=== PATIENT | female | born 1940 | race Caucasian/White ===

== ENCOUNTER 2019-05-19 14:15 | Inpatient (IN) ==
[2019-05-20] MEDS ORDERED: Melatonin 3 MG TABLET PO PRN (15:16)
[2019-05-20] MEDS ORDERED: Mag Hydrox/Al Hydrox/Simeth 30 ML UDC PO PRN (15:16)
[2019-05-20] MEDS ORDERED: Ondansetron ODT 4 MG TAB.RAPDIS SL PRN (15:16)
[2019-05-20] MEDS ORDERED: traMADol 50 MG TABLET PO PRN (16:40)
[2019-05-21] MEDS: Acetaminophen 325 MG TABLET PO PRN (03:36)
[2019-05-21] MEDS: *HR* Enoxaparin 40 MG/0.4 ML SYRINGE SQ SCH (05:00)
[2019-05-21 05:36] LABS: Basophils % 0.4 %; Eosinophils # 0.2 K/mcL (0.0-0.6); Eosinophils % 2.9 %; Hemoglobin 11.2 g/dL (11.5-15.4); Immature Granulocytes % 0.1 % (0-4); Lymphocytes % 14.4 %; Mean Corpuscular HGB Conc 32.9 g/dL (31.6-35.5); Mean Corpuscular Hemoglobin 29.6 pg (28.0-33.3); Mean Corpuscular Volume 89.7 fL (83.0-100.0); Mean Platelet Volume 10.1 fL (9.4-12.4); Monocytes # 0.6 K/mcL (0.0-1.3); Monocytes % 7.8 %; Neutrophils # 5.4 K/mcL (1.6-8.9); Platelet Count 196 K/mcL (140-400); Red Blood Count 3.79 M/mcL (3.82-4.97); Red Cell Distribution Width 13.3 % (11.5-14.5); Segmented Neutrophils % 74.4 %; White Blood Count 7.2 K/mcL (4.3-11.1)
[2019-05-21 05:51] LABS: Alanine Aminotransferase 7 Units/L (7-52); Albumin 2.9 g/dL (3.5-5.7); Albumin/Globulin Ratio 1.5 (1.1-2.2); Alkaline Phosphatase 75 Units/L (34-104); Aspartate Amino Transferase 13 Units/L (13-39); BUN/Creatinine Ratio 17 (6-26); Bilirubin,Total 0.5 mg/dL (0.3-1.0); Blood Urea Nitrogen 7 mg/dL (8-23); Calcium 8.6 mg/dL (8.6-10.3); Carbon Dioxide 30 mEq/L (23-29); Chloride 101 mEq/L (98-107); Glucose 103 mg/dL (70-105); Magnesium 1.8 mg/dL (1.6-2.6); Osmolality,Calculated 280 (280-300); Potassium 3.7 mEq/L (3.5-5.1); Sodium 136 mEq/L (136-145); Total Protein 4.9 g/dL (6.4-8.9); eGFR For African Americans > 60 (> 60); eGFR For Non-African Americans > 60 (> 60)
[2019-05-21] MEDS: amLODIPine 5 MG TABLET PO SCH (09:14)
--- NOTE | 2019-05-21 10:54 | Internal Med History&Physical ---
Date of Encounter: 05/21/19 Time of Encounter: 10:50 Assessment and Plan (1) Fracture, intertrochanteric, right femur Current visit: No Status: Acute Patient was admitted to facility for further rehabilitation due to deconditioning and unsteady gait. Therapy evaluation with recommendations pending. Right hip surgical site appears healthy with dressing intact. Patient states her pain has been well managed. We will continue with current medications to include prophylactic anticoagulation Qualifiers: Encounter type: initial encounter Fracture type: closed Fracture alignment: nondisplaced Qualified Code(s): S72.144A - Nondisplaced inter trochanteric fracture of right femur, initial encounter for closed fracture (2) HTN (hypertension) Current visit: No Status: Chronic No acute issues. Patient's blood pressure has been stable since surgery or medical records. We will continue with current medications Qualifiers: Hypertension type: essential hypertension Qualified Code(s): I10 - Essential (primary) hypertension Internal Medicine - H&P: HPI Chief complaint: right femur fracture Admitted From: Hospital to Hospital Transfer Plans for Post Hospital Care: Home History of present illness: Ms. Connelly is a 79 year old female with history of OA and hypertension, who was admitted at [facility] due to mechanical fall resulting in right intertrochanteric femur fracture. She underwent a right hip intramedullary nail fixation on 05/18. Post-operatively, she remained stable with an uneventful recovery. Patient was transferred to this facility for further rehabilitation due to deconditioning and unsteady gait. Patient states that she continues to have moderate pain to her right hip, but that her pain has been tolerable with current medications. States that she continues to have an unsteady gait, but is able to bear weight to her right leg. Denies any other discomforts or shortness of breath. Patient does state she has not had a BM in several days but states that this is not unusual when she has at home, as she can sometimes go several days without a bowel movement. Denies any abdominal cramping or discomforts. Past Med Surg Social Fam HX - Past Medical History Medical history: arthritis, hypertension Psychiatric history: no psych history - Past Surgical History Surgical History: herniorrhaphy Additional surgical history: HERNIA REPAIR X 2, right hip fracture and pinning 2019. - Social History Smoking Status: Former smoker Smokeless Tobacco Status: No Alcohol use: none Drug use: none - Family History Mother Family Member Ethnicity: Non- Living Status: Hx Family Cardiac Disorders: Yes ([place], Open heart surgery) Father Family Member Ethnicity: Non- Living Status: Hx Family Respiratory Disorders: Yes Brother Family Member Ethnicity: Non- Living Status: Still Living Hx Family Cardiac Disorders: Yes (CAD) Hx Family Cancer: Yes (Lung) Sister Family Member Ethnicity: Non- Living Status: Still Living Hx Family Cardiac Disorders: Yes (HTN) Internal Medicine - H&P: Meds Amlodipine Besylate 5 mg PO DAILY 05/17/19 [History] Atenolol 100 mg PO DAILY 05/17/19 [History] HYDROcodone/Acet 5/325 mg [[place] 5-325 mg] 1 tab PO Q6H PRN 5 Days #20 tab 05/20/19 [Rx] Allergy/AdvReac Type Severity Reaction Status Date / Time codeine Allergy Difficulty Verified 05/16/19 21:35 Breathing All Systems PM: A 10-system review of systems was performed and is negative for pertinent findings except as documented above in the HPI. - Constitutional Constitutional: as per HPI, no chills, no fever(s), no night sweats - EENT Eyes: as per HPI, no change in vision, no discharge, no pain, no photophobia Ears: no ear discharge, no ear pain, no tinnitus Nose, mouth and throat: as per HPI, no dysphagia, no nasal discharge, no neck pain, no sore throat - Cardiovascular Cardiovascular ROS IM: as per HPI, no chest pain, no diaphoresis, no dyspnea, no lightheadedness, no palpitations, no syncope - Respiratory Respiratory: as per HPI, no cough, no dyspnea, no wheezing, no excessive phlegm production - Gastrointestinal Gastrointestinal: as per HPI, no abdominal pain, no diarrhea, no hematemesis, no hematochezia, no melena, no nausea, no vomiting - Genitourinary Genitourinary: as per HPI, no change in urinary stream, no dysuria, no flank pain, no hematuria - Musculoskeletal Musculoskeletal ROS IM: as per HPI, no numbness, no tingling - Integumentary Integumentary IM: as per HPI, no rash, no unusual bruising - Neurological Neurological ROS: as per HPI, no confusion, no convulsions, no focal weakness, no numbness, no tingling, no tremor(s) - Hematologic/Lymphatic Hematologic/Lymphatic: no easy bruising - Constitutional Vitals: Temp Pulse Resp BP Pulse Ox 97.4 F L 68 17 129/77 95 05/21/19 07:02 05/21/19 07:02 05/21/19 07:02 05/21/19 07:02 05/21/19 07:02 General appearance: Present: A&O X 3, pleasant - Head Head exam: Present: atraumatic, normocephalic - Eye Eye exam: Present: PERRL, conjuntiva pink, sclera anicteric Pupils: Present: PERRL - Neck Neck exam general surgery: Present: supple, trachea midline. Absent: lymphadenopathy - Respiratory Respiratory exam: Present: decreased breath sounds, CTAB. Absent: accessory muscle use, rales, rhonchi, wheezes - Cardiovascular Cardiovascular exam: Present: RRR, +S1, +S2. Absent: diastolic murmur, gallop, rubs, systolic murmur - GI/Abdominal GI/Abdominal exam: Present: normal bowel sounds, soft, no peritoneal signs. Absent: distended, tenderness - Extremities Exam Extremities exam: Present: warm, radial pulses palpable and symmetrical. Absent: calf tenderness, cyanotic, pedal edema Additional comments: As with surgical dressing to right hip that appears dry and intact. No erythema or ecchymosis noted to size. Minimal edema to right hip - Neurological Exam Neurological exam: Present: CN II-XII intact, oriented X3, no focal deficits. Absent: pronater drift, facial droop, speech deficit - Skin Skin exam: Present: dry, intact Internal Med - H&P Results - Labs CBC & Chem 7: 05/21/19 05:20 05/21/19 05:20 Labs: Short CBC 05/21/19 Range/Units 05:20 WBC 7.2 (4.3-11.1) K/mcL Hgb 11.2 L (11.5-15.4) g/dL Hct 34.0 L (35.3-44.9) % Plt Count 196 (140-400) K/mcL Neutrophils # 5.4 (1.6-8.9) K/mcL BMP 05/21/19 05:20 Sodium 136 Potassium 3.7 Chloride 101 Carbon Dioxide 30 H BUN 7 L Creatinine 0.42 L Glucose 103 Calcium 8.6 Liver Function 05/21/19 Range/Units 05:20 Total Bilirubin 0.5 (0.3-1.0) mg/dL AST 13 (13-39) Units/L ALT 7 (7-52) Units/L Alkaline Phosphatase 75 (34-104) Units/L Albumin 2.9 L (3.5-5.7) g/dL
[2019-05-21] MEDS: traMADol 50 MG TABLET PO PRN (14:26)
[2019-05-22] MEDS: *HR* Enoxaparin 40 MG/0.4 ML SYRINGE SQ SCH (05:46)
[2019-05-22] MEDS: amLODIPine 5 MG TABLET PO SCH (08:23)
[2019-05-22] MEDS ORDERED: Isovue-370 500 ML BOTTLE IVP ONE (10:22)
--- NOTE | 2019-05-22 11:06 | Internal Med Progress Note ---
Date of Encounter: 05/22/19 Time of Encounter: 11:04 - Assessment and plan (1) Fracture, intertrochanteric, right femur Current Visit: Yes Status: Acute Assessment and plan: No acute issues. Right hip surgical incision appears healthy with dressing intact. No ecchymosis noted. Minimal edema noted. Patient is participating in therapy and progressing well. Qualifiers: Encounter type: initial encounter Fracture type: closed Fracture alignment: nondisplaced Qualified Code(s): S72.144A - Nondisplaced intertrochanteric fracture of right femur, initial encounter for closed fracture (2) HTN (hypertension) Current Visit: No Status: Chronic Assessment and plan: Vital signs remained stable. Patient will continue on current medications. Qualifiers: Hypertension type: essential hypertension Qualified Code(s): I10 - Essential (primary) hypertension (3) Dyspnea Current Visit: Yes Status: Acute Assessment and plan: Patient has had complaints of slight shortness of breath during exertion. Noted diminished breath sounds to basilar shaw with left greater than right. 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 We will continue to monitor patient. No hypoxia has been noted. Qualifiers: Dyspnea type: unspecified Qualified Code(s): R06.00 - Dyspnea, unspecified - Time Spent With Patient less than 15 minutes - Subjective Interval history: Patient appears relaxed and currently denies any discomforts. Patient states that the pain to her right hip increases during mobilization while in therapy but that the pain is tolerable with current medications. Patient has had complaints of slight dyspnea during exertion. Chest x-ray was obtained which shows a very elevated left hemidiaphragm but after review of patient's radiology records this is been an issue over the past 15 years. She denies any chest dis comforts or palpitations. She denies any productive cough. No history of hypoxia per medical records - Constitutional Vitals: Temp Pulse Resp BP Pulse Ox 98.2 F 70 16 144/80 95 05/22/19 07:23 05/22/19 07:23 05/22/19 07:23 05/22/19 07:23 05/22/19 07:23 General appearance: Present: A&O X 3, pleasant - Head Head exam: Present: atraumatic, normocephalic - Eye Eye exam: Present: PERRL, conjuntiva pink, sclera anicteric Pupils: Present: PERRL - Neck Neck exam general surgery: Present: supple, trachea midline. Absent: lymphadenopathy - Respiratory Respiratory exam: Present: decreased breath sounds, CTAB. Absent: accessory muscle use, rales, rhonchi, wheezes Additional comments: Lungs are clear throughout upper shaw with diminished(with left greater than right. No productive cough. Respiratory effort appears relaxed while at rest. - Cardiovascular Cardiovascular exam: Present: RRR, +S1, +S2. Absent: diastolic murmur, gallop, rubs, systolic murmur - GI/Abdominal GI/Abdominal exam: Present: normal bowel sounds, soft, no peritoneal signs. Absent: distended, tenderness - Extremities Exam Extremities exam: Present: warm, radial pulses palpable and symmetrical. Absent : calf tenderness, cyanotic, pedal edema Additional comments: Right hip surgical incision appears healthy with no ecchymosis noted. Surgical dressing remains intact. Minimal edema noted to right hip - Neurological Exam Neurological exam: Present: CN II-XII intact, oriented X3, no focal deficits. Absent: pronater drift, facial droop, speech deficit - Skin Skin exam: Present: dry, intact Internal Medicine: Result - Labs CBC & Chem 7: 05/21/19 05:20 05/21/19 05:20 - Impressions Impressions Chest X-Ray 05/22/19 08:45 IMPRESSION: 1. No significant change. 2. Marked elevation of the left hemidiaphragm likely left basilar atelectasis. D/ / Vipin Magallanes MD / Vipin Magallanes MD Interpreting Provider: Vipin Magallanes MD Consult Discharge Plan - Plan Referrals: Félix Isbell MD [Primary Care Provider] -
[2019-05-23] MEDS: *HR* Enoxaparin 40 MG/0.4 ML SYRINGE SQ SCH (05:06)
[2019-05-23] MEDS: Acetaminophen 325 MG TABLET PO PRN ×2 (08:10→13:02)
[2019-05-23] MEDS: amLODIPine 5 MG TABLET PO SCH (08:10)
--- NOTE | 2019-05-23 11:12 | Internal Med Progress Note ---
Date of Encounter: 05/23/19 Time of Encounter: 11:10 - Assessment and plan (1) Fracture, intertrochanteric, right femur Current Visit: Yes Status: Acute Assessment and plan: Continue PT and OT. Will follow progress. Follow up with ortho as scheduled. Pain controlled with Tylenol. Qualifiers: Encounter type: sequela Fracture type: closed Fracture alignment: nondisplaced Qualified Code(s): S72.144S - Nondisplaced intertrochanteric fracture of right femur, sequela (2) HTN (hypertension) Current Visit: Yes Status: Chronic Assessment and plan: Controlled with current medication. Monitor blood pressure. Qualifiers: Hypertension type: essential hypertension Qualified Code(s): I10 - Essential (primary) hypertension - Time Spent With Patient less than 15 minutes - Subjective Interval history: Participating well with therapy. States she is feeling better today. Continues to be on oxygen at 2 L per nasal cannula. Maintaining sets around 94%. Will try to wean. Denies fever, chills, nausea vomiting or diarrhea. Denies shortness of breath or chest pain. Pain to right hip is controlled with Tylenol. States she had a bowel movement last night. Maintaining appetite and hydration. - Constitutional Vitals: Temp Pulse Resp BP Pulse Ox 98.7 F 61 18 127/84 96 05/23/19 07:12 05/23/19 07:12 05/23/19 07:12 05/23/19 07:12 05/23/19 07:12 General appearance: Present: cooperative, A&O X 3, pleasant, no acute distress - Head Head exam: Present: atraumatic, normocephalic - Eye Eye exam: Present: PERRL, conjuntiva pink, sclera anicteric Pupils: Present: PERRL - Neck Neck exam general surgery: Present: supple, trachea midline. Absent: lymphadenopathy - Respiratory Respiratory exam: Present: CTAB. Absent: accessory muscle use, rales, rhonchi, wheezes - Cardiovascular Cardiovascular exam: Present: RRR, +S1, +S2. Absent: diastolic murmur, gallop, rubs, systolic murmur - GI/Abdominal GI/Abdominal exam: Present: normal bowel sounds, soft, no peritoneal signs. Absent: distended, tenderness - Extremities Exam Extremities exam: Present: warm, radial pulses palpable and symmetrical. Absent: calf tenderness, cyanotic, pedal edema - Incison Comments: Right hip incision dressing dry and intact. No drainage. No sign of infection. - Neurological Exam Neurological exam: Present: CN II-XII intact, oriented X3, no focal deficits. Absent: pronater drift, facial droop, speech deficit - Skin Skin exam: Present: dry, intact Internal Medicine: Result - Labs CBC & Chem 7: 05/21/19 05:20 05/21/19 05:20 Consult Discharge Plan - Plan Referrals: Félix Isbell MD [Primary Care Provider] -
[2019-05-24] MEDS: Acetaminophen 325 MG TABLET PO PRN ×4 (00:58→20:44)
[2019-05-24] MEDS: *HR* Enoxaparin 40 MG/0.4 ML SYRINGE SQ SCH (04:32)
[2019-05-24] MEDS: amLODIPine 5 MG TABLET PO SCH (08:39)
--- NOTE | 2019-05-24 09:40 | Internal Med Progress Note ---
Date of Encounter: 05/24/19 Time of Encounter: 09:39 - Assessment and plan (1) Dyspnea Current Visit: Yes Status: Acute Assessment and plan: This is at baseline, clinically. Oxygen continued to wean. Qualifiers: Dyspnea type: unspecified Qualified Code(s): R06.00 - Dyspnea, unspecified (2) Fracture, intertrochanteric, right femur Current Visit: Yes Status: Acute Assessment and plan: Continues to improve with therapies. Qualifiers: Encounter type: sequela Fracture type: closed Fracture alignment: nondisplaced Qualified Code(s): S72.144S - Nondisplaced intertrochanteric fracture of right femur, sequela (3) Hemidiaphragmatic eventration Current Visit: No Status: Acute Assessment and plan: Exam sounds better than before, no rales or today. (4) HTN (hypertension) Current Visit: Yes Status: Chronic Assessment and plan: Adequate control. Qualifiers: Hypertension type: essential hypertension Qualified Code(s): I10 - Essential (primary) hypertension - Subjective Interval history: Patient is without problems and feels tired after therapy, otherwise without complaint. She is pleased that her bowels finally moved. Patient has no complaint of chest discomfort, dyspnea, orthopnea, palpitations, nausea or vomiting, constipation or diarrhea, other changes in bowel habits, difficulty with urination, rash or itching, or other new complaints, except as mentioned above. Review of systems is otherwise negative. I discussed management of patient's care with nursing staff. - Constitutional Vitals: Temp Pulse Resp BP Pulse Ox 97.9 F 69 15 132/75 93 05/24/19 07:02 05/24/19 07:02 05/24/19 07:02 05/24/19 07:02 05/24/19 07:02 Exam: Examination: (Except as mentioned above): General: In no apparent distress. Alert and oriented 3. Nondiaphoretic. Head: Atraumatic and normocephalic. Respiratory: No use of accessory muscles. Lungs are clear throughout. Normal airflow. Cardiovascular: Regular rate and rhythm without murmur appreciated. Abdomen: Bowel sounds are normal. No hepatosplenomegaly mass or tenderness appreciated. Obese and therefore difficult to palpate deeply. Patient is examined upright in chair and this also limits exam. Extremities: No cyanosis clubbing or edema. Skin: Warm and non-diaphoretic with no new lesions noted. Internal Medicine: Result - Labs CBC & Chem 7: 05/21/19 05:20 05/21/19 05:20 Consult Discharge Plan - Plan Referrals: Félix Isbell MD [Primary Care Provider] -
[2019-05-25] MEDS: Acetaminophen 325 MG TABLET PO PRN ×5 (01:21→22:16)
[2019-05-25] MEDS: *HR* Enoxaparin 40 MG/0.4 ML SYRINGE SQ SCH (06:02)
[2019-05-25] MEDS: amLODIPine 5 MG TABLET PO SCH (08:56)
--- NOTE | 2019-05-25 13:23 | Internal Med Progress Note ---
Date of Encounter: 05/25/19 Time of Encounter: 13:21 - Assessment and plan (1) Dyspnea Current Visit: Yes Status: Acute Assessment and plan: She states this is improving. Clinically, oxygen has been weaned. Qualifiers: Dyspnea type: unspecified Qualified Code(s): R06.00 - Dyspnea, unspecified (2) Fracture, intertrochanteric, right femur Current Visit: Yes Status: Acute Assessment and plan: Continues to progress, well. Qualifiers: Encounter type: sequela Fracture type: closed Fracture alignment: nondisplaced Qualified Code(s): S72.144S - Nondisplaced intertrochanteric fracture of right femur, sequela (3) Hemidiaphragmatic eventration Current Visit: No Status: Inactive Assessment and plan: Apparently stable. (4) HTN (hypertension) Current Visit: Yes Status: Chronic Assessment and plan: Clinically controlled. Qualifiers: Hypertension type: essential hypertension Qualified Code(s): I10 - Essential (primary) hypertension - Subjective Interval history: Patient denies complaints. She states that she thinks a week or more of therapy because she wants to be stable and to be completely ready to go home. She started moving her bowels and is pleased with this. No other complaints. Patient has no complaint of chest discomfort, dyspnea, orthopnea, palpitations, nausea or vomiting, constipation or diarrhea, other changes in bowel habits, difficulty with urination, rash or itching, or other new complaints, except as mentioned above. Review of systems is otherwise negative. I discussed management of patient's care with nursing staff. - Constitutional Vitals: Temp Pulse Resp BP Pulse Ox 98.1 F 69 14 149/83 95 05/25/19 07:34 05/25/19 07:34 05/25/19 07:34 05/25/19 07:34 05/25/19 07:34 Exam: Examination: (Except as mentioned above): General: In no apparent distress. Alert and oriented 3. Nondiaphoretic. Head: Atraumatic and normocephalic. Respiratory: No use of accessory muscles. Lungs are clear throughout but she has diminished breath sounds at the left base, without rales. Normal airflow. Cardiovascular: Regular rate and rhythm without murmur appreciated. (I hear no murmur today.) Abdomen: Bowel sounds are normal. No hepatosplenomegaly mass or tenderness appreciated. Obese and therefore difficult to palpate deeply. Patient is examined upright in chair and this also limits exam. Extremities: No cyanosis clubbing or edema. Skin: Warm and non-diaphoretic with no new lesions noted. Internal Medicine: Result - Labs CBC & Chem 7: 05/21/19 05:20 05/21/19 05:20 Consult Discharge Plan - Plan Referrals: Félix Isbell MD [Primary Care Provider] -
[2019-05-26] MEDS: Acetaminophen 325 MG TABLET PO PRN ×4 (02:35→21:34)
[2019-05-26] MEDS: *HR* Enoxaparin 40 MG/0.4 ML SYRINGE SQ SCH (06:39)
[2019-05-26] MEDS: amLODIPine 5 MG TABLET PO SCH (08:33)
--- NOTE | 2019-05-26 09:44 | Internal Med Progress Note ---
Date of Encounter: 05/26/19 Time of Encounter: 09:42 - Assessment and plan (1) Fracture, intertrochanteric, right femur Current Visit: Yes Status: Acute Assessment and plan: No acute issues. Right hip surgical incision appears healthy with dressing intact. No ecchymosis noted. Minimal edema noted. Patient is participating in therapy and progressing well. Qualifiers: Encounter type: sequela Fracture type: closed Fracture alignment: nondisp laced Qualified Code(s): S72.144S - Nondisplaced intertrochanteric fracture of right femur, sequela (2) HTN (hypertension) Current Visit: Yes Status: Chronic Assessment and plan: Vital signs remained stable. Patient will continue on current medications. Qualifiers: Hypertension type: essential hypertension Qualified Code(s): I10 - Essential (primary) hypertension (3) Dyspnea Current Visit: Yes Status: Acute Assessment and plan: Patient has had complaints of slight shortness of breath during exertion. Noted diminished breath sounds to basilar shaw with left greater than right. Patient with a chronic left hemidiaphragm elevation, likely with the reduction of lung field, she becomes dyspneic with exertion. No signs of infectious process noted Qualifiers: Dyspnea type: unspecified Qualified Code(s): R06.00 - Dyspnea, unspecified - Time Spent With Patient less than 15 minutes - Subjective Interval history: Patient appears relaxed and currently denies any discomforts. Patient states that the pain to her right hip increases during mobilization while in therapy but that the pain is tolerable with current medications. Patient has had complaints of slight dyspnea during exertion, but patient with a history of a chronic, very elevated left hemidiaphragm. She states that her c/o dyspnea has been a chronic issue [employer] . She denies any chest discomforts or palpitations. She denies any productive cough. No history of hypoxia per medical records - Constitutional Vitals: Temp Pulse Resp BP Pulse Ox 98.3 F 66 16 143/75 98 05/26/19 07:00 05/26/19 07:00 05/26/19 07:00 05/26/19 07:00 05/26/19 07:00 General appearance: Present: cooperative, A&O X 3, pleasant, no acute distress - Head Head exam: Present: atraumatic, normocephalic - Eye Eye exam: Present: PERRL, conjuntiva pink, sclera anicteric Pupils: Present: PERRL - Neck Neck exam general surgery: Present: supple, trachea midline. Absent: lymphadenopathy - Respiratory Respiratory exam: Present: decreased breath sounds, CTAB. Absent: accessory mus cedric use, rales, rhonchi, wheezes Additional comments: Also clear to auscultation to upper shaw, but noted diminished basilar breath sounds with left greater than right. No productive cough. Respiratory effort appears relaxed. - Cardiovascular Cardiovascular exam: Present: RRR, +S1, +S2. Absent: diastolic murmur, gallop, rubs, systolic murmur - GI/Abdominal GI/Abdominal exam: Present: normal bowel sounds, soft, no peritoneal signs. Absent: distended, tenderness - Extremities Exam Extremities exam: Present: warm, radial pulses palpable and symmetrical. Absent: calf tenderness, cyanotic, pedal edema Additional comments: Right hip surgical incision appears healthy with dressing dry and intact. Minimal edema noted. No ecchymosis. - Neurological Exam Neurological exam: Present: CN II-XII intact, oriented X3, no focal deficits. Absent: pronater drift, facial droop, speech deficit - Skin Skin exam: Present: dry, intact Internal Medicine: Result - Labs CBC & Chem 7: 05/21/19 05:20 05/21/19 05:20 Consult Discharge Plan - Plan Referrals: Félix Isbell MD [Primary Care Provider] -
[2019-05-27] MEDS: *HR* Enoxaparin 40 MG/0.4 ML SYRINGE SQ SCH (04:22)
[2019-05-27] MEDS: traMADol 50 MG TABLET PO PRN (04:22)
[2019-05-27] MEDS: amLODIPine 5 MG TABLET PO SCH (09:43)
[2019-05-27] MEDS: Acetaminophen 325 MG TABLET PO PRN ×3 (09:43→23:34)
--- NOTE | 2019-05-27 10:33 | Internal Med Progress Note ---
Date of Encounter: 05/27/19 Time of Encounter: 10:31 - Assessment and plan (1) Fracture, intertrochanteric, right femur Current Visit: Yes Status: Acute Assessment and plan: Continue PT and OT. Will follow progress. Follow up with ortho as scheduled. Pain controlled with Tylenol. Qualifiers: Encounter type: sequela Fracture type: closed Fracture alignment: nondisplaced Qualified Code(s): S72.144S - Nondisplaced intertrochanteric fracture of right femur, sequela (2) HTN (hypertension) Current Visit: Yes Status: Chronic Assessment and plan: Controlled with current medication. Monitor blood pressure. Qualifiers: Hypertension type: essential hypertension Qualified Code(s): I10 - Essential (primary) hypertension - Time Spent With Patient less than 15 minutes - Subjective Interval history: Participating well with therapy. Denies fever, chills, nausea vomiting or diarrhea. Denies shortness of breath or chest pain. Pain to right hip is controlled with Tylenol. States she had a bowels moving as normal. Maintaining appetite and hydration. - Constitutional Vitals: Temp Pulse Resp BP Pulse Ox 97.8 F 69 16 136/79 96 05/27/19 07:00 05/27/19 07:00 05/27/19 07:00 05/27/19 07:00 05/27/19 07:00 General appearance: Present: cooperative, A&O X 3, pleasant, no acute distress - Head Head exam: Present: atraumatic, normocephalic - Eye Eye exam: Present: PERRL, conjuntiva pink, sclera anicteric Pupils: Present: PERRL - Neck Neck exam general surgery: Present: supple, trachea midline. Absent: lymphadenopathy - Respiratory Respiratory exam: Present: CTAB. Absent: accessory muscle use, rales, rhonchi, wheezes - Cardiovascular Cardiovascular exam: Present: RRR, +S1, +S2. Absent: diastolic murmur, gallop, rubs, systolic murmur - GI/Abdominal GI/Abdominal exam: Present: normal bowel sounds, soft, no peritoneal signs. Absent: distended, tenderness - Extremities Exam Extremities exam: Present: warm, radial pulses palpable and symmetrical. Absent: calf tenderness, cyanotic, pedal edema Additional comments: Arthritic joints, right lower extremity non-pitting edema. Incision to right hip dressing dry and intact. No drainage. - Neurological Exam Neurological exam: Present: CN II-XII intact, oriented X3, no focal deficits. Absent: pronater drift, facial droop, speech deficit - Skin Skin exam: Present: dry, intact Internal Medicine: Result - Labs CBC & Chem 7: 05/21/19 05:20 05/21/19 05:20 Consult Discharge Plan - Plan Referrals: Félix Isbell MD [Primary Care Provider] -
[2019-05-28] MEDS: *HR* Enoxaparin 40 MG/0.4 ML SYRINGE SQ SCH (05:35)
[2019-05-28] MEDS: Acetaminophen 325 MG TABLET PO PRN ×4 (05:35→22:01)
--- NOTE | 2019-05-28 08:17 | Internal Med Progress Note ---
Date of Encounter: 05/28/19 Time of Encounter: 08:16 - Assessment and plan (1) Dyspnea Current Visit: Yes Status: Acute Assessment and plan: She seems to be improved and apparently this is return to baseline or nearly so. Qualifiers: Dyspnea type: unspecified Qualified Code(s): R06.00 - Dyspnea, unspecified (2) Fracture, intertrochanteric, right femur Current Visit: Yes Status: Acute Assessment and plan: Stable and improving although therapy has faced her baseline ambulation difficulties. 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 (4) HTN (hypertension) Current Visit: Yes Status: Chronic Assessment and plan: Controlled. Qualifiers: Hypertension type: essential hypertension Qualified Code(s): I10 - Essential (primary) hypertension - Subjective Interval history: Patient denies complaints. She is fatigued with therapy but feels like she is progressing in terms of strength. Also, her breathing is improving. She is m oving her bowels, this morning. She has no other problems. Family is discussing home care providing attention 23/04. Patient has no complaint of chest discomfort, dyspnea, orthopnea, palpitations, nausea or vomiting, constipation or diarrhea, other changes in bowel habits, difficulty with urination, rash or itching, or other new complaints, except as mentioned above. Review of systems is otherwise negative. I discussed management of patient's care with nursing staff. - Constitutional Vitals: Temp Pulse Resp BP Pulse Ox 98.1 F 61 14 132/76 96 05/28/19 07:15 05/28/19 07:15 05/28/19 07:15 05/28/19 07:15 05/28/19 07:15 Exam: General: In no apparent distress. Alert and oriented 3. Nondiaphoretic. Head: Atraumatic and normocephalic. Respiratory: No use of accessory muscles. Lungs are clear throughout except left diminished breath sounds, as before. Normal airflow. Cardiovascular: Regular rate and rhythm without murmur appreciated. Abdomen: Bowel sounds are normal. No hepatosplenomegaly mass or tenderness appreciated. Obese and therefore difficult to palpate deeply. Extremities: No cyanosis clubbing or edema. Patient is examined upright in chair and this also limits exam. Skin: Warm and non-diaphoretic with no new lesions noted. Internal Medicine: Result - Labs CBC & Chem 7: 05/21/19 05:20 05/21/19 05:20 Consult Discharge Plan - Plan Referrals: Félix Isbell MD [Primary Care Provider] -
[2019-05-28] MEDS: amLODIPine 5 MG TABLET PO SCH (08:49)
[2019-05-28 11:20] LABS: Basophils # 0.1 K/mcL (0.0-0.2); Basophils % 0.7 %; Eosinophils # 0.1 K/mcL (0.0-0.6); Eosinophils % 0.8 %; Hematocrit 39.1 % (35.3-44.9); Hemoglobin 12.8 g/dL (11.5-15.4); Immature Granulocytes % 0.4 % (0-4); Lymphocytes # 1.2 K/mcL (0.6-4.6); Lymphocytes % 12.1 %; Mean Corpuscular HGB Conc 32.7 g/dL (31.6-35.5); Mean Corpuscular Volume 91.8 fL (83.0-100.0); Mean Platelet Volume 10.1 fL (9.4-12.4); Monocytes # 0.6 K/mcL (0.0-1.3); Monocytes % 5.9 %; Neutrophils # 7.9 K/mcL (1.6-8.9); Platelet Count 379 K/mcL (140-400); Red Blood Count 4.26 M/mcL (3.82-4.97); Red Cell Distribution Width 14.6 % (11.5-14.5); Segmented Neutrophils % 80.1 %; White Blood Count 9.8 K/mcL (4.3-11.1)
[2019-05-28 11:31] LABS: BUN/Creatinine Ratio 24 (6-26); Blood Urea Nitrogen 15 mg/dL (8-23); Carbon Dioxide 31 mEq/L (23-29); Chloride 98 mEq/L (98-107); Glucose 114 mg/dL (70-105); Osmolality,Calculated 278 (280-300); Sodium 133 mEq/L (136-145); eGFR For African Americans > 60 (> 60); eGFR For Non-African Americans > 60 (> 60)
[2019-05-29] MEDS: Acetaminophen 325 MG TABLET PO PRN ×4 (01:55→20:36)
[2019-05-29] MEDS: *HR* Enoxaparin 40 MG/0.4 ML SYRINGE SQ SCH (05:38)
[2019-05-29] MEDS: amLODIPine 5 MG TABLET PO SCH (09:21)
--- NOTE | 2019-05-29 10:13 | Internal Med Progress Note ---
Date of Encounter: 05/29/19 Time of Encounter: 10:11 - Assessment and plan (1) Fracture, intertrochanteric, right femur Current Visit: Yes Status: Acute Assessment and plan: No acute issues. Right hip surgical incision appears healthy with dressing intact. No ecchymosis noted. Minimal edema noted. Patient is participating in therapy and progressing well. Qualifiers: Encounter type: sequela Fracture type: closed Fracture alignment: nondisp laced Qualified Code(s): S72.144S - Nondisplaced intertrochanteric fracture of right femur, sequela (2) HTN (hypertension) Current Visit: Yes Status: Chronic Assessment and plan: Vital signs remained stable. Patient will continue on current medications. Qualifiers: Hypertension type: essential hypertension Qualified Code(s): I10 - Essential (primary) hypertension - Time Spent With Patient less than 15 minutes - Subjective Interval history: Patient appears relaxed and currently denies any discomforts. Patient states that the pain to her right hip increases during mobilization while in therapy but that the pain is tolerable with current medications. She denies any chest discomforts or palpitations. - Constitutional Vitals: Temp Pulse Resp BP Pulse Ox 97.6 F 60 16 131/88 97 05/29/19 07:00 05/29/19 07:00 05/29/19 07:00 05/29/19 07:00 05/29/19 07:00 General appearance: Present: cooperative, A&O X 3, pleasant, no acute distress - Head Head exam: Present: atraumatic, normocephalic - Eye Eye exam: Present: PERRL, conjuntiva pink, sclera anicteric Pupils: Present: PERRL - Neck Neck exam general surgery: Present: supple, trachea midline. Absent: lymphadenopathy - Respiratory Respiratory exam: Present: decreased breath sounds, CTAB. Absent: accessory muscle use, rales, rhonchi, wheezes - Cardiovascular Cardiovascular exam: Present: RRR, +S1, +S2. Absent: diastolic murmur, gallop, rubs, systolic murmur - GI/Abdominal GI/Abdominal exam: Present: normal bowel sounds, soft, no peritoneal signs. Absent: distended, tenderness - Extremities Exam Extremities exam: Present: normal capillary refill, normal inspection, warm, radial pulses palpable and symmetrical. Absent: calf tenderness, cyanotic, pedal edema Additional comments: Patient was surgical dressing to right hip is dry and intact. No ecchymosis noted minimal edema noted - Neurological Exam Neurological exam: Present: CN II-XII intact, oriented X3, no focal deficits. Absent: pronater drift, facial droop, speech deficit - Skin Skin exam: Present: dry, intact Internal Medicine: Result - Labs CBC & Chem 7: 05/28/19 11:03 05/28/19 11:03 Labs: Short CBC 05/28/19 Range/Units 11:03 WBC 9.8 (4.3-11.1) K/mcL Hgb 12.8 (11.5-15.4) g/dL Hct 39.1 (35.3-44.9) % Plt Count 379 (140-400) K/mcL Neutrophils # 7.9 (1.6-8.9) K/mcL BMP 05/28/19 11:03 Sodium 133 L Potassium 4.0 Chloride 98 Carbon Dioxide 31 H BUN 15 Creatinine 0.63 Glucose 114 H Calcium 10.0 Consult Discharge Plan - Plan Referrals: Félix Isbell MD [Primary Care Provider] -
[2019-05-30] MEDS: Acetaminophen 325 MG TABLET PO PRN ×4 (03:07→21:55)
[2019-05-30] MEDS: *HR* Enoxaparin 40 MG/0.4 ML SYRINGE SQ SCH (05:20)
[2019-05-30] MEDS: amLODIPine 5 MG TABLET PO SCH (08:26)
--- NOTE | 2019-05-30 10:23 | Internal Med Progress Note ---
Date of Encounter: 05/30/19 Time of Encounter: 10:22 - Assessment and plan (1) Fracture, intertrochanteric, right femur Current Visit: Yes Status: Acute Assessment and plan: Continue PT and OT. Will follow progress. Follow up with ortho as scheduled. Pain controlled with Tylenol. Qualifiers: Encounter type: sequela Fracture type: closed Fracture alignment: nondisplaced Qualified Code(s): S72.144S - Nondisplaced intertrochanteric fracture of right femur, sequela (2) HTN (hypertension) Current Visit: Yes Status: Chronic Assessment and plan: Controlled with current medication. Monitor blood pressure. Qualifiers: Hypertension type: essential hypertension Qualified Code(s): I10 - Essential (primary) hypertension - Time Spent With Patient less than 15 minutes - Subjective Interval history: Participating well with therapy. Denies fever, chills, nausea vomiting or diarrhea. Denies shortness of breath or chest pain. Pain to right hip is controlled with Tylenol. States she had a bowels moving as normal. Maintaining appetite and hydration. - Constitutional Vitals: Temp Pulse Resp BP Pulse Ox 98.4 F 80 18 124/82 97 05/30/19 07:00 05/30/19 07:00 05/30/19 07:00 05/30/19 07:00 05/30/19 07:00 General appearance: Present: cooperative, A&O X 3, pleasant, no acute distress - Head Head exam: Present: atraumatic, normocephalic - Eye Eye exam: Present: PERRL, conjuntiva pink, sclera anicteric Pupils: Present: PERRL - Neck Neck exam general surgery: Present: supple, trachea midline. Absent: lymphadenopathy - Respiratory Respiratory exam: Present: CTAB. Absent: accessory muscle use, rales, rhonchi, wheezes - Cardiovascular Cardiovascular exam: Present: RRR, +S1, +S2. Absent: diastolic murmur, gallop, rubs, systolic murmur - GI/Abdominal GI/Abdominal exam: Present: normal bowel sounds, soft, no peritoneal signs. Absent: distended, tenderness - Extremities Exam Extremities exam: Present: warm, radial pulses palpable and symmetrical. Absent: calf tenderness, cyanotic, pedal edema Additional comments: slight edema to RLE. - Incison Comments: Right hip incision, dressing dry and intact. No drainage. - Neurological Exam Neurological exam: Present: CN II-XII intact, oriented X3, no focal deficits. Absent: pronater drift, facial droop, speech deficit - Skin Skin exam: Present: dry, intact Internal Medicine: Result - Labs CBC & Chem 7: 05/28/19 11:03 05/28/19 11:03 Consult Discharge Plan - Plan Referrals: Félix Isbell MD [Primary Care Provider] -
[2019-05-31] MEDS: Acetaminophen 325 MG TABLET PO PRN ×4 (02:43→21:13)
[2019-05-31] MEDS: *HR* Enoxaparin 40 MG/0.4 ML SYRINGE SQ SCH (06:12)
[2019-05-31] MEDS: amLODIPine 5 MG TABLET PO SCH (08:18)
--- NOTE | 2019-05-31 09:14 | Internal Med Progress Note ---
Date of Encounter: 05/31/19 Time of Encounter: 09:12 - Assessment and plan (1) Fracture, intertrochanteric, right femur Current Visit: Yes Status: Acute Assessment and plan: stable getting rehab and is doing better slowly improving Qualifiers: Encounter type: sequela Fracture type: closed Fracture alignment: nondisplaced Qualified Code(s): S72.144S - Nondisplaced intertrochanteric fracture of right femur, sequela (2) HTN (hypertension) Current Visit: Yes Status: Chronic Assessment and plan: stable on meds Continue to follow and adjsut meds as needed Qualifiers: Hypertension type: essential hypertension Qualified Code(s): I10 - Essential (primary) hypertension (3) Dyspnea Current Visit: Yes Status: Chronic Assessment and plan: using Oxygen the present time . She used to smoke but quit 50 years ago. overall doing better continue to follow Qualifiers: Dyspnea type: unspecified Qualified Code(s): R06.00 - Dyspnea, unspecified - Time Spent With Patient 25 - 35 minutes - Subjective Interval history: Cross coverage . No acute issues .Seems to be doing fine She is using Oxygen which she needs when she is performing exercise No cough no fever or chills overall she feels better . Pain is well controlled - Constitutional Vitals: Temp Pulse Resp BP Pulse Ox 98 F 101 18 126/72 97 05/31/19 07:00 05/31/19 07:00 05/31/19 07:00 05/31/19 07:00 05/31/19 07:00 General appearance: Present: cooperative, A&O X 3, pleasant, no acute distress - Head Head exam: Present: atraumatic - Eye Eye exam: Present: EOMI, PERRL. Absent: periorbital tenderness, scleral icterus , conjuntiva pink, sclera anicteric - Neck Neck exam general surgery: Present: full ROM, supple. Absent: tenderness, nuchal rigidity - Respiratory Respiratory exam: Present: CTAB. Absent: respiratory distress, rhonchi, s tridor, wheezes, tachypnea - Cardiovascular Cardiovascular exam: Present: RRR, +S1, +S2. Absent: gallop, systolic murmur, tachycardia - GI/Abdominal GI/Abdominal exam: Present: soft. Absent: distended, firm, guarding, rebound, rigid, tenderness, no peritoneal signs - Extremities Exam Extremities exam: Absent: calf tenderness, pedal edema, tenderness - Back Exam Back exam: Absent: paraspinal tenderness, tenderness Additional comments: mild khyphosis - Neurological Exam Neurological exam: Present: altered, CN II-XII intact, oriented X3, no focal deficits. Absent: facial droop, speech deficit Internal Medicine: Result - Labs CBC & Chem 7: 05/28/19 11:03 05/28/19 11:03 Consult Discharge Plan - Plan Referrals: Félix Isbell MD [Primary Care Provider] -
[2019-06-01] MEDS: Acetaminophen 325 MG TABLET PO PRN ×4 (01:36→23:28)
[2019-06-01] MEDS: *HR* Enoxaparin 40 MG/0.4 ML SYRINGE SQ SCH (05:50)
[2019-06-01] MEDS: amLODIPine 5 MG TABLET PO SCH (08:14)
--- NOTE | 2019-06-01 08:41 | Internal Med Progress Note ---
Date of Encounter: 06/01/19 Time of Encounter: 08:39 - Assessment and plan (1) Fracture, intertrochanteric, right femur Current Visit: Yes Status: Acute Assessment and plan: stable getting rehab and is doing better slowly improving Wound healing good no signs of inflammation Qualifiers: Encounter type: sequela Fracture type: closed Fracture alignment: nondisplaced Qualified Code(s): S72.144S - Nondisplaced intertrochanteric fracture of right femur, sequela (2) HTN (hypertension) Current Visit: Yes Status: Chronic Assessment and plan: stable on meds Continue to follow and adjust meds as needed Qualifiers: Hypertension type: essential hypertension Qualified Code(s): I10 - Essential (primary) hypertension (3) Dyspnea Current Visit: Yes Status: Chronic Assessment and plan: using Oxygen the present time . Continues to use Oxygen need to assess if she will require it at home Qualifiers: Dyspnea type: unspecified Qualified Code(s): R06.00 - Dyspnea, unspecified - Subjective Interval history: Cross coverage . No acute issues today had good night sleep .Pain is well controlled on Tylenol. Overall she feels that she is getting better - Constitutional Vitals: Temp Pulse Resp BP Pulse Ox 98.6 F 61 16 125/78 97 06/01/19 07:00 06/01/19 07:00 06/01/19 07:00 06/01/19 07:00 06/01/19 07:00 General appearance: Present: cooperative, A&O X 3, pleasant, no acute distress - Head Head exam: Present: atraumatic - Eye Eye exam: Present: PERRL. Absent: periorbital tenderness, scleral icterus, conjuntiva pink, sclera anicteric - Neck Neck exam general surgery: Present: full ROM, supple. Absent: tenderness, nuchal rigidity - Respiratory Respiratory exam: Present: CTAB. Absent: respiratory distress, rhonchi, st ridor, wheezes, tachypnea Additional comments: using oxygen pulse OX stable - Cardiovascular Cardiovascular exam: Present: RRR, +S1, +S2. Absent: gallop, systolic murmur, tachycardia - GI/Abdominal GI/Abdominal exam: Present: normal bowel sounds, soft. Absent: guarding, rebound, rigid - Extremities Exam Extremities exam: Absent: pedal edema, tenderness, warm - Incison Incision: Present: clean and dry, intact. Absent: red, swollen, purulent, indurated - Neurological Exam Neurological exam: Present: CN II-XII intact, oriented X3, strengths equal and symetr throughout. Absent: pronater drift, facial droop, speech deficit Internal Medicine: Result - Labs CBC & Chem 7: 05/28/19 11:03 05/28/19 11:03 Consult Discharge Plan - Plan Referrals: Félix Isbell MD [Primary Care Provider] -
[2019-06-02] MEDS: *HR* Enoxaparin 40 MG/0.4 ML SYRINGE SQ SCH (04:48)
[2019-06-02] MEDS: Acetaminophen 325 MG TABLET PO PRN ×3 (04:52→20:59)
--- NOTE | 2019-06-02 08:17 | Internal Med Progress Note ---
Date of Encounter: 06/02/19 Time of Encounter: 08:15 - Assessment and plan (1) Fracture, intertrochanteric, right femur Current Visit: Yes Status: Acute Assessment and plan: stable getting rehab . No new issues except for edema feet both side no swelling in calfs. Elevate feet while sitting . Qualifiers: Encounter type: sequela Fracture type: closed Fracture alignment: nondisplaced Qualified Code(s): S72.144S - Nondisplaced intertrochanteric fracture of right femur, sequela (2) HTN (hypertension) Current Visit: Yes Status: Chronic Assessment and plan: stable on meds No new issues .Continue to follow and adjust meds as needed Qualifiers: Hypertension type: essential hypertension Qualified Code(s): I10 - Essential (primary) hypertension (3) Dyspnea Current Visit: Yes Status: Chronic Assessment and plan: using Oxygen the present time which uses as needed. Need reassessment if she qualifies for oxygen Qualifiers: Dyspnea type: unspecified Qualified Code(s): R06.00 - Dyspnea, unspecified - Subjective Interval history: Cross coverage . No acute issues today and up in chair Pain is well controlled on Tylenol. Overall she feels that she is getting better - Constitutional Vitals: Temp Pulse Resp BP Pulse Ox 97.8 F 67 18 132/68 91 06/01/19 19:45 06/01/19 19:45 06/01/19 19:45 06/01/19 19:45 06/01/19 19:45 General appearance: Present: cooperative, A&O X 3, pleasant, no acute distress - Head Head exam: Present: atraumatic - Eye Eye exam: Present: EOMI, PERRL. Absent: conjuntiva pink, sclera anicteric - Neck Neck exam general surgery: Present: supple. Absent: tenderness, nuchal rigidity - Respiratory Respiratory exam: Present: CTAB. Absent: respiratory distress, rhonchi, stridor, wheezes - Cardiovascular Cardiovascular exam: Present: RRR, +S1, +S2. Absent: systolic murmur - GI/Abdominal GI/Abdominal exam: Present: normal bowel sounds, soft. Absent: rebound, rigid, tenderness, no peritoneal signs - Extremities Exam Extremities exam: Present: pedal edema Additional comments: edema feet noted today she has been sitting with her legs dangling . Pitting - Incison Incision: Present: clean and dry, intact. Absent: draining, red, swollen, inflamed, erythema - Neurological Exam Neurological exam: Present: alert, CN II-XII intact, oriented X3, strengths equal and symetr throughout. Absent: facial droop, speech deficit Internal Medicine: Result - Labs CBC & Chem 7: 05/28/19 11:03 05/28/19 11:03 Consult Discharge Plan - Plan Referrals: Félix Isbell MD [Primary Care Provider] -
[2019-06-02] MEDS: amLODIPine 5 MG TABLET PO SCH (08:23)
[2019-06-03] MEDS: Acetaminophen 325 MG TABLET PO PRN ×4 (01:33→22:27)
[2019-06-03] MEDS: *HR* Enoxaparin 40 MG/0.4 ML SYRINGE SQ SCH (05:35)
[2019-06-03] MEDS: amLODIPine 5 MG TABLET PO SCH (07:42)
[2019-06-03 08:36] LABS: BUN/Creatinine Ratio 25 (6-26); Blood Urea Nitrogen 14 mg/dL (8-23); Calcium 9.8 mg/dL (8.6-10.3); Carbon Dioxide 30 mEq/L (23-29); Chloride 102 mEq/L (98-107); Glucose 114 mg/dL (70-105); Osmolality,Calculated 285 (280-300); Sodium 137 mEq/L (136-145); eGFR For African Americans > 60 (> 60); eGFR For Non-African Americans > 60 (> 60)
--- NOTE | 2019-06-03 16:11 | Internal Med Progress Note ---
Date of Encounter: 06/04/19 Time of Encounter: 17:10 - Subjective Interval history: - Assessment and plan (1) Fracture, intertrochanteric, right femur Current Visit: Yes Status: Acute Assessment and plan: stable getting rehab . No new issues except for edema feet both side no swelling in calfs. Elevate feet while sitting . Qualifiers: Encounter type: sequela Fracture type: closed Fracture alignment: nondisplaced Qualified Code(s): S72.144S - Nondisplaced intertrochanteric fracture of right femur, sequela (2) HTN (hypertension) Current Visit: Yes Status: Chronic Assessment and plan: stable on meds No new issues .Continue to follow and adjust meds as needed Qualifiers: Hypertension type: essential hypertension Qualified Code(s): I10 - Essential (primary) hypertension (3) Dyspnea Current Visit: Yes Status: Chronic Assessment and plan: using Oxygen the present time which uses as needed. Need reassessment if she q ualifies for oxygen Qualifiers: Dyspnea type: unspecified Qualified Code(s): R06.00 - Dyspnea, unspecified - Subjective Interval history: PT doing well with therapy walking slow with walker states would like to take Calcium and VIT D as she had been told to do at home Pain is well controlled on Tylenol. Overall she feels that she is getting better EXAM General appearance: Present: cooperative, A&O X 3, pleasant, no acute distress - Head Head exam: Present: atraumatic - Eye Eye exam: Present: EOMI, PERRL. Absent: conjuntiva pink, sclera anicteric - Neck Neck exam general surgery: Present: supple. Absent: tenderness, nuchal rigidity - Respiratory Respiratory exam: Present: CTAB. Absent: respiratory distress, rhonchi, stridor, wheezes - Cardiovascular Cardiovascular exam: Present: RRR, +S1, +S2. Absent: systolic murmur - GI/Abdominal GI/Abdominal exam: Present: normal bowel sounds, soft. Absent: rebound, rigid, tenderness, no peritoneal signs - Extremities Exam Extremities exam: Present: pedal edema Additional comments: edema feet noted today she has been sitting with her legs dangling . Pitting - Incison Incision: Present: clean and dry, intact. - Constitutional Vitals: Temp Pulse Resp BP Pulse Ox 97.6 F 65 16 125/73 92 06/03/19 07:39 09/03/19 07:39 06/03/19 07:39 06/03/19 07:39 06/03/19 07:39 General appearance: Present: cooperative, A&O X 3, pleasant, no acute distress Internal Medicine: Result - Labs CBC & Chem 7: 05/28/19 11:03 06/03/19 07:48 Labs: BMP 06/03/19 07:48 Sodium 137 Potassium 4.0 Chloride 102 Carbon Dioxide 30 H BUN 14 Creatinine 0.56 L Glucose 114 H Calcium 9.8 Consult Discharge Plan - Plan Referrals: Félix Isbell MD [Primary Care Provider] -
[2019-06-03] MEDS: Cholecalciferol (D-3) 1,000 UNIT (25MCG) TABLET PO SCH (17:10)
[2019-06-04] MEDS: Acetaminophen 325 MG TABLET PO PRN ×4 (03:10→19:49)
[2019-06-04] MEDS: *HR* Enoxaparin 40 MG/0.4 ML SYRINGE SQ SCH (05:08)
[2019-06-04] MEDS: amLODIPine 5 MG TABLET PO SCH (07:32)
[2019-06-04] MEDS: Cholecalciferol (D-3) 1,000 UNIT (25MCG) TABLET PO SCH (07:32)
[2019-06-04] MEDS: Multivit/Ca/Min/Fe/FA 1 TAB TABLET PO SCH (07:33)
--- NOTE | 2019-06-04 10:45 | Internal Med Progress Note ---
Date of Encounter: 06/04/19 Time of Encounter: 10:43 - Assessment and plan (1) Fracture, intertrochanteric, right femur Current Visit: Yes Status: Acute Assessment and plan: No acute issues. Right hip surgical incision appears healthy with dressing intact. No ecchymosis noted. Minimal edema noted. Patient is participating in therapy and progressing well. Qualifiers: Encounter type: sequela Fracture type: closed Fracture alignment: nondisp laced Qualified Code(s): S72.144S - Nondisplaced intertrochanteric fracture of right femur, sequela (2) HTN (hypertension) Current Visit: Yes Status: Chronic Assessment and plan: Vital signs remained stable. Patient will continue on current medications. Qualifiers: Hypertension type: essential hypertension Qualified Code(s): I10 - Essential (primary) hypertension - Time Spent With Patient less than 15 minutes - Subjective Interval history: Patient appears relaxed and currently denies any discomforts. Patient states that the pain to her right hip increases during mobilization while in therapy but that the pain is tolerable with current medications. She denies any chest discomforts or palpitations. - Constitutional Vitals: Temp Pulse Resp BP Pulse Ox 98.0 F 65 16 139/72 93 06/04/19 07:14 06/04/19 07:14 06/04/19 07:14 06/04/19 07:14 06/04/19 07:14 General appearance: Present: cooperative, A&O X 3, pleasant, no acute distress - Head Head exam: Present: atraumatic, normocephalic - Eye Eye exam: Present: PERRL, conjuntiva pink, sclera anicteric Pupils: Present: PERRL - Neck Neck exam general surgery: Present: supple, trachea midline. Absent: lymphadenopathy - Respiratory Respiratory exam: Present: decreased breath sounds, CTAB. Absent: accessory muscle use, rales, rhonchi, wheezes - Cardiovascular Cardiovascular exam: Present: RRR, +S1, +S2. Absent: diastolic murmur, gallop, rubs, systolic murmur - GI/Abdominal GI/Abdominal exam: Present: normal bowel sounds, soft, no peritoneal signs. Absent: distended, tenderness - Extremities Exam Extremities exam: Present: normal capillary refill, normal inspection, warm, radial pulses palpable and symmetrical. Absent: calf tenderness, cyanotic, pedal edema Additional comments: Patient's right hip surgical incision appears to be healing well. Slight edema noted right hip. - Neurological Exam Neurological exam: Present: CN II-XII intact, oriented X3, no focal deficits. Absent: pronater drift, facial droop, speech deficit - Skin Skin exam: Present: dry, intact Internal Medicine: Result - Labs CBC & Chem 7: 05/28/19 11:03 06/03/19 07:48 Consult Discharge Plan - Plan Referrals: Félix Isbell MD [Primary Care Provider] -
[2019-06-05] MEDS: Acetaminophen 325 MG TABLET PO PRN ×2 (00:06→08:03)
[2019-06-05] MEDS: *HR* Enoxaparin 40 MG/0.4 ML SYRINGE SQ SCH (05:20)
[2019-06-05 07:52] VITALS: BP 137/77
[2019-06-05] MEDS: Multivit/Ca/Min/Fe/FA 1 TAB TABLET PO SCH (07:55)
[2019-06-05] MEDS: Cholecalciferol (D-3) 1,000 UNIT (25MCG) TABLET PO SCH (07:55)
[2019-06-05] MEDS: amLODIPine 5 MG TABLET PO SCH (07:55)
--- NOTE | 2019-06-05 09:54 | Discharge Summary ---
Date of Encounter: 06/05/19 Time of Encounter: 09:51 - Discharge Diagnosis (1) Fracture, intertrochanteric, right femur Priority: Primary Status: Acute Comments: No acute issues during her stay. Patient's surgical wound to right hip appears to be healing well. Patient has had follow-up with orthopedic surgeon with no new orders and bhavin removed. She has been participating in physical therapy and progressing well although patient has had issues with hypoxia, which is exacerbated by exertion. Patient to continue follow-up with her orthopedic surgeon and PCP after discharge for further management Qualifiers: Encounter type: sequela Fracture type: closed Fracture alignment: nondisplaced Qualified Code(s): S72.144S - Nondisplaced intertrochanteric fracture of right femur, sequela (2) HTN (hypertension) Priority: Secondary Status: Chronic Comments: Vital signs remained stable during her stay. Patient is to continue on current medications after discharge and follow-up with PCP for further management Qualifiers: Hypertension type: essential hypertension Qualified Code(s): I10 - Essential (primary) hypertension (3) Hypoxemia Priority: Secondary Status: Acute Comments: Patient shortness of breath with hypoxia during exertion while in therapy. Malachi lomeli's oxygen saturation has been documented as low as 85%. Patient was placed on an oximeter for overnight and showed continued hypoxia with saturations in the mid 80s while on room air. Patient's oxygenation increased with supplemental oxygen at 2 L and she was able to maintain saturations greater than 90%. Patient has a history significant for a left hemidiaphragm elevation, with imaging evidence found in medical records as far back as 2004. Patient shows significant lung reduction on her left lung shaw. Patient also has serial echocardiograms which shows mild left ventricular dysfunction. Patient will be discharged with a prescription for oxygen and is to follow-up with her PCP in one week for further evaluation and management. Hospital course: Ms. Connelly is a 79 year old female with history of OA and hypertension, who was admitted at [facility] due to mechanical fall resulting in right intertrochanteric femur fracture. She underwent a right hip intramedullary nail fixation on 05/18. Post-operatively, she remained stable with an uneventful recovery. Patient was transferred to this facility for further rehabilitation due to deconditioning and unsteady gait. Patient states that she continues to have moderate pain to her right hip, but that her pain has remained tolerable with current medications. Patient had had complaints of dyspnea on exertion while admitted to facility. 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 Patient was found to be hypoxic during ambulation was saturations on room air dropping to mid 80s. Patient was placed on oxygen at 2 L unable to maintain saturations greater than 90%. She also had an overnight oximetry trend obtained which shows significant drop in her oxygen while on room air to the mid 80s and again this resolved after placing on oxygen at 2 L, which maintaining greater than 90%. Patient's right hip surgical incision has remained healthy in appearance and she was able to attend a follow- up with orthopedic surgeon with no changes in orders received. Bhavin have been removed. Patient continues to progress with physical therapy and will continue her therapy to outpatient services after discharge. Patient will be discharged with prescription for oxygen at 2 L and is to follow-up with her PCP in one week after discharge for further evaluation and management. Discharge discussed with: patient Time spent discussing smoking cessation with patient: 3 to 10 minutes - Time Spent with Patient Total time spent providing and/or coordinating discharge services: Time spent: Less than 30 minutes - Discharge Medications Prescriptions: No Action Amlodipine Besylate 5 mg PO DAILY Atenolol 100 mg PO DAILY HYDROcodone/Acet 5/325 mg [[place] 5-325 mg] 1 tab PO Q6H PRN 5 Days #20 tab PRN Reason: Severe Pain Home Medications: Amlodipine Besylate 5 mg PO DAILY 05/17/19 [History] Atenolol 100 mg PO DAILY 05/17/19 [History] HYDROcodone/Acet 5/325 mg [[place] 5-325 mg] 1 tab PO Q6H PRN 5 Days #20 tab 05/20/19 [Rx] Allergies/Adverse Reactions: Allergy/AdvReac Type Severity Reaction Status Date / Time codeine Allergy Difficulty Verified 05/16/19 21:35 Breathing Date of admission: 05/20/19 14:10 Primary care physician: Félix Isbell MD Consults: 05/20/19 15:07 Consult to Occupational Therapy [CONS] Routine Comment: Evaluate, develop and implement POC Reason for Consult: s/p right hip fracture Does patient have active BEDREST order?: No Is patient medically & hemodynamically stable?: Yes Patient assessed for mobility or mobilized this visit?: No Consult to Physical Therapy [CONS] Routine Comment: Evaluate, develop and implement POC Reason for Consult: s/p right hip fracture Does patient have active BEDREST order?: No Is patient medically & hemodynamically stable?: Yes Patient assessed for mobility or mobilized this visit?: No Consult to Recreational Therapy [CONS] Routine Comment: Evaluate, develop and implement POC Consult to [facility] [CONS] Routine Reason for SW Consult: d/c planning 05/20/19 15:58 Consult to Nutrition [CONS] Routine Comment: Consulting Provider: NUTRITION Reason for Dietary Consult: MST Score Other Other:: Hypoalbuminemia Discharging clinician: John Lynn - Constitutional Vitals: Temp Pulse Resp BP Pulse Ox 97.5 F L 69 16 137/77 95 06/05/19 07:51 06/05/19 07:51 06/05/19 07:51 06/05/19 07:51 06/05/19 08:10 General appearance: Present: cooperative, A&O X 3, pleasant, no acute distress - Head Head exam: Present: atraumatic, normocephalic - Eye Eye exam: Present: PERRL, conjuntiva pink, sclera anicteric Pupils: Present: PERRL - Neck Neck exam general surgery: Present: supple, trachea midline. Absent: lymphadenopathy - Respiratory Respiratory exam: Present: decreased breath sounds, CTAB. Absent: accessory muscle use, rales, rhonchi, wheezes - Cardiovascular Cardiovascular exam: Present: RRR, +S1, +S2. Absent: diastolic murmur, gallop, rubs, systolic murmur - GI/Abdominal GI/Abdominal exam: Present: normal bowel sounds, soft, no peritoneal signs. Absent: distended, tenderness - Extremities Exam Extremities exam: Present: warm, radial pulses palpable and symmetrical. Absent: calf tenderness, cyanotic, pedal edema Additional comments: Right hip surgical incision appears to be healing well. No erythema or ecchymosis - Neurological Exam Neurological exam: Present: CN II-XII intact, oriented X3, no focal deficits. Absent: pronater drift, facial droop, speech deficit - Skin Skin exam: Present: dry, intact - Patient Status Disposition: Home Health Service Condition: Good Functional capacity at discharge: uses cane/walker Overall status at discharge: patient is progressing back to baseline - Discharge Instructions Follow Up With: Félix Isbell MD [Primary Care Provider] - - Diet and Activity Activity: ambulate only with your walker, as per physical therapy, increase activity as tolerated Diet: low fat, low cholesterol, low salt diet
--- NOTE | 2019-06-05 11:18 | Physician Discharge Referral ---
Home Health/Hosp Referral Info Transfer to: Home Health Provider in Charge Post Discharge: PCP - Diagnosis (1) Fracture, intertrochanteric, right femur Priority: Primary Status: Acute (2) HTN (hypertension) Priority: Secondary Status: Chronic (3) Hypoxemia Priority: Secondary Status: Acute - Respiratory Orders Oxygen / L per min (2 LPM NC, titrate to keep oximetry >90%) Smoking Cessation: Smoking cessation has been advised. For more information, call the [place] Tobacco Quit Line at 5-859-EJKM-NOW. - Diet/Nutrition Diet/Nutrition Orders: Regular, No Added Salt (SOPHIA) - Activity Activity Orders: Up ad valerio, Walker - Services Needed Following services are medically necessary services: Nursing, Home Health Aide, Physical Therapy, Occupational Therapy - Transfer Medications Home Medications: Amlodipine Besylate 5 mg PO DAILY 05/17/19 [History] Atenolol 100 mg PO DAILY 05/17/19 [History] HYDROcodone/Acet 5/325 mg [[place] 5-325 mg] 1 tab PO Q6H PRN 5 Days #20 tab 05/20/19 [Rx] Allergies/Adverse Reactions: Allergy/AdvReac Type Severity Reaction Status Date / Time codeine Allergy Difficulty Verified 05/16/19 21:35 Breathing Certification: Further, I certify that my clinical findings support that this patient is homebound (i.e. absences from home require considerable and taxing effort and are for medical reasons or confucianism services or infrequently or short duration when for other reasons) because: Homebound Reason: Leaving home requires considerable and taxing effort due to condition Attestation: My signature below is to certify that this patient is under my care and that I, or nurse practitioner, or a physician's community assistant working with me, has a [id number] encounter with this patient.
== END 2019-06-05 14:04 | disposition home health service (06) | DRG 559 ==
LOC: INPGRE 05-20 14:10